=== PATIENT | female | born 1960 | race Caucasian/White ===

== ENCOUNTER 2022-08-18 12:13 | Emergency (ER) | payer OTHER | END 2022-08-18 14:25 | disposition home or self-care (01) | LOC: JD.ED 12:13 | DX: S01.01XA Laceration without foreign body of scalp, initial encounter (principal); W00.0XXA Fall on same level due to ice and snow, initial encounter | CPT/HCPCS: 70450; 70450-26; 72125; 72125-26; 99283 ==

== ENCOUNTER 2023-06-18 07:07 | Day surgery (SDC) | payer OTHER ==
[~2023-06-18 07:07] MED LIST: Lactated Ringers 1,000 ML IV SCH; Sodium Chloride 0.9% 10 ML Syringe FLUSH PRN; Sodium Chloride 0.9% 10 ML Syringe FLUSH SCH
[2023-06-18] MEDS ORDERED: Lidocaine 2% 5 ML SDV ONE (07:40)
[2023-06-18] MEDS ORDERED: Propofol 200 MG/20 ML SDV ONE ×2 (07:40→08:05)
== END 2023-06-18 09:17 | disposition home or self-care (01) ==
LOC: JD.SDS 07:07
PROVIDERS: ATTEND Surgery
DX: Z12.11 Encounter for screening for malignant neoplasm of colon (principal); F41.9 Anxiety disorder, unspecified; F32.A Depression, unspecified; I10 Essential (primary) hypertension; E78.5 Hyperlipidemia, unspecified; E03.9 Hypothyroidism, unspecified; M85.80 Other specified disorders of bone density and structure, unspecified site; Z79.890 Hormone replacement therapy; Z79.84 Long term (current) use of oral hypoglycemic drugs; Z79.899 Other long term (current) drug therapy; Z98.890 Other specified postprocedural states; Z87.891 Personal history of nicotine dependence
CPT/HCPCS: 45378; J2704; J7120; J3490